=== PATIENT | female | born 1955 | race Caucasian/White ===

== ENCOUNTER 2017-12-31 09:42 | Day surgery (SDC) | payer BC ==
[~2017-12-31 09:42] MED LIST: Buffered Lidocaine 0.9% SYRIN* 5 ML/SYR SYRINGE INTRADERM ONE; DiMENhydriNATE IV* 50 MG/ML VIAL IV PUSH PRN; Famotidine IV* 10 MG/ML 2 ML (20 mg) IV ONE; Morphine INJ* 2 MG/ML 1 ML CARPUJECT IV PRN; Naloxone* 0.4 MG/ML 1 ML VIAL IV PRN; PROCHLORPERAZINE INJ 5 MG/ML 2 ML VIAL IV PRN; Scopolamine 1.5 mg* PATCH TRANSDERM PRN; fentaNYL* 50 MCG/ML 2 ML VIAL (100 MCG VIAL) IV PRN; oxyCODONE/Acetamin 5/325 MG* TAB PO PRN
[2017-12-31] MEDS ORDERED: Famotidine IV* 10 MG/ML 2 ML (20 mg) ONE (09:46)
[2017-12-31] MEDS ORDERED: ceFAZolin 2 GM PREMIX (*) 2 GM/50 ML BAG IVPB ONE (09:46)
[2017-12-31] MEDS ORDERED: fentaNYL* 50 MCG/ML 2 ML VIAL (100 MCG VIAL) ONE (09:49)
[2017-12-31] MEDS ORDERED: Midazolam* 1 MG/ML 5 ML VIAL (5 MG) ONE (09:49)
[2017-12-31] MEDS ORDERED: Chloroprocaine 3%* 20 ML VIAL ONE (11:28)
[2017-12-31] MEDS ORDERED: Ondansetron INJ* 2 MG/ML VIAL ONE (12:33)
[2017-12-31] MEDS ORDERED: Dexamethasone IV* 4 MG/ML 1 ML (4 MG) ONE (12:33)
[2017-12-31] MEDS ORDERED: Propofol* 500 MG/50 ML BTL ONE (12:33)
[2017-12-31] MEDS ORDERED: Lidocaine 2% PF * 5 ML VIAL ONE (12:33)
[2017-12-31] MEDS ORDERED: Bupivacaine 0.25% SDV* 30 ML ONE (12:33)
[2017-12-31] MEDS ORDERED: Propofol* 10 MG/ML 20 ML BTL IV PUSH ONE (12:33)
[2017-12-31] MEDS ORDERED: Bupivacaine 0.5%* 50 ML VIAL ONE (13:33)
[2017-12-31 14:51] VITALS: BP 126/85
--- NOTE | 2017-12-31 17:05 | OP ---
Operative Report - Blank - Operative Report Date of Operation: 12/31/17 Note: PATIENT: Nakia Boyce DATE OF : 1955 DATE OF SURGERY: 12/31/2017 SURGEON: Aron Blackmon MD STAINED GLASS WINDOW DESIGNER: MIKAYLA Elliott, whos assistance was necessary for positioning, retraction, help with instrumentation, and closure. ANESTHESIOLOGIST: Klever Hathaway MD PREOPERATIVE DIAGNOSIS: Left ankle distal fibula fracture, dislocation of peroneal tendons, and superior peroneal retinaculum avulsion. POSTOPERATIVE DIAGNOSIS: Left ankle distal fibula fracture, dislocation of peroneal tendons, peroneus longus and peroneus brevis tears, and superior peroneal retinaculum avulsion. OPERATION: 1. Left ankle excision of distal fibula fracture 2. Left ankle peroneus longus tendon repair 3. Left ankle peroneal tendon tenodesis, with peroneus brevis to longus tendon transfer. 4. Stabilization of left ankle dislocated peroneal tendons with fibular osteotomy groove deepening 5. Repair of left calcaneofibular ligament. ANESTHESIA: Spinal + peripheral nerve block IMPLANTS: none TOURNIQUET TIME: Less than 2 hours with a well-padded thigh tourniquet at 250 mmHg SPECIMENS: Peroneus brevis tendon ESTIMATED BLOOD LOSS: minimal COMPLICATIONS: none STATUS: Stable from the operating room to the recovery room and then home. INDICATIONS FOR PROCEDURE: Nakia sustained a left ankle injury about 2 months ago. She was found to have a distal fibular fractures with peroneal tendon dislocations. Both operative and non operative treatment alternatives were reviewed. Further, the nature and risks of surgery were reviewed in careful detail, in the office as well as the pre-operative holding area. Our discussions regarding the risks of surgery included, but were not limited to, infection, wound problems, nerve injury, neuroma, RSD, persistent symptoms, blood clot, failure of the surgery, recurrent instability, need for further surgery and even the remote chance of catastrophic complication, including loss of limb. DESCRIPTION OF PROCEDURE: The patient was seen in the preoperative holding unit and informed written consent was obtained. The appropriate extremity was marked. The patient was then brought to the operating room and carefully positioned on the operating room table. Anesthesia was induced. All bony prominences were padded with great care. A well-padded thigh tourniquet was placed. The peroneal tendons were. A chlorhexidine based pre-scrub was performed followed by a chloraprep prep and drape in standard sterile fashion. A surgical safety pause was then conducted in which we confirmed the appropriate patient, extremity, planned procedure, availability of equipment, indication and administration of prophylactic antibiotics, and DVT prophylaxis in the form of a compression boot on the non- surgical extremity. I began with an Esmarch exsanguination of the limb and the tourniquet inflated. I utilized an incision overlying the distal fibula and peroneal tendons laterally. I carried the dissection down through the soft tissue to the level of the periosteum and superior peroneal retinaculum (SPR) with care taken to protect the sural nerve, which was not visualized during the procedure. The superior peroneal retinaculum was avulsed off the distal fibula and the peroneal tendons were dislocated from behind fibula. I carefully incised the SPR to expose the peroneal tendons. Dissection of the tendons was carried distally. The peroneus brevis tendon was almost entirely torn at the level of the distal fibula. For a few centimeters in length, the tendon was in very bad condition and at one point there was only a few millimeters of remaining tendon. The peroneus longus tendon also had some frayed areas which were debrided and it also had a longitudinal tear in the area of the distal fibula. After debriding the peroneus longus tendon I repaired the longus tear by tubularizing the tendon with a 3-0 Ethibond suture. After examining the brevis tendon, the decision was made that it was not salvageable or repairable. Therefore, I performed a proximal and distal tenodesis of the peroneus brevis tendon to the peroneus longus tendon, thus transferring the brevis to longus. Then the central degenerated portion was excised. I next turned my attention to the distal fibula fracture. I exposed and cleared the fracture site. The free piece was small and of poor quality. The bone edge was fibrotic in nature and did not have healthy cancellous bone underneath it. Therefore I made the decision to excise the distal fibular fracture piece. The calcaneofibular ligament, which was attached to the piece was then repaired to the remaining distal fibula and lateral capsuloligamentous complex. At this point, I carefully inspected the peroneal groove at the posterior aspect of the fibula. This was convex groove and I therefore elected to perform a groove deepening osteotomy procedure. I utilized a small sagittal saw to create a longitudinal osteotomy in the fibula at the margin of the insertion of the SPR. I then utilized a bone tamp and a mallet to impact this area, deepening the groove. I took care to ensure that there were no sharp bony prominences in this area. At this point I carefully planned out the repair of the superior peroneal retinaculum. I then reduced the tendons and they sat nicely in the deepened retro-fibular groove. The wound was copiously irrigated. I repaired the SPR utilizing #1 Vicryl suture in a transosseous horizontal mattress suture pattern. I utilized multiple sutures for this repair, appropriately tensioning the SPR. I was able to pass a [place] under the repaired SPR without difficulty after the repair. We then irrigated the wound copiously again. The wound was closed in a layered fashion utilizing 3-0 Monocryl and 3-0 nylon. A sterile dressing was then applied and the ankle was splinted in a neutral position. All needle and sponge counts were correct at the end of the case. The patient was awakened from anesthesia and transferred to the recovery room in stable condition. There were no complications. ATTESTATION: I attest I was present and scrubbed and performed the critical portions of the procedure myself. POST-OPERATIVE PLAN: The patient will remain [id number] for an anticipated duration of 6 weeks. Follow up will be in 2 weeks for likely suture removal and transition into a short leg cast.
[2018-01-03] MEDS ORDERED: Scopolamine PATCH Remove* 1 NOTE MISC PATCH OFF ONE (05:46)
== END 2017-12-31 15:18 | disposition home or self-care (01) ==
LOC: OR 09:42
PROVIDERS: ATTEND Orthopaedic Surgery
DX: S82.62XA Displaced fracture of lateral malleolus of left fibula, initial encounter for closed fracture (principal); S93.412A Sprain of calcaneofibular ligament of left ankle, initial encounter; S96.812A Strain of other specified muscles and tendons at ankle and foot level, left foot, initial encounter; M25.371 Other instability, right ankle; I10 Essential (primary) hypertension; Z87.891 Personal history of nicotine dependence; V98.3XXA Accident to, on or involving ski lift, initial encounter; Y93.23 Activity, snow (alpine) (downhill) skiing, snowboarding, sledding, tobogganing and snow tubing; Y92.39 Other specified sports and athletic area as the place of occurrence of the external cause
CPT/HCPCS: 88304; C1776; J0690; J1100; J2250; J2400; J2405; J2704; J3010

== ENCOUNTER 2018-01-18 15:06 | Emergency (ER) | payer BC ==
--- NOTE | 2018-01-18 16:11 | ED ---
Adult Trauma - HPI Summary HPI Summary: 62F presents for fall today. She states she was using her walker when it got caught in her pants and she tripped and face planted on to her right eye. She admits to right hip and elbow pain. She has full range of motion of right elbow. She has ecchymosis noted to her right hip. She is able to bear weight on her right hip. She states she has a previous fracture of her left ankle that is going to have surgery on . She is not on any blood thinners and has discontinued her daily aspirin due to this surgery. She denies any loss consciousness. She denies any neck pain. She denies any chest pain or shortness of breath. Fall was mechanical fall. She has been taking Tylenol for her symptoms. She has history of HTN and easy bruising. - History of Current Complaint Chief Complaint: EDGeneral Stated Complaint: FALL Time Seen by Provider: 01/18/18 15:54 Pain Intensity: 4 - Allergy/Home Medications Allergies/Adverse Reactions: Allergies Allergy/AdvReac Type Severity Reaction Status Date / Time No Known Allergies Allergy Verified 01/18/18 15:12 PMH/Surg Hx/FS Hx/Imm Hx Endocrine/Hematology History: Reports: Hx Thyroid Disease - BENIGN NODULE Denies: Hx Diabetes, Hx Anemia Cardiovascular History: Reports: Hx Hypertension - ON MEDICATION GI History: Denies: Hx Jaundice Musculoskeletal History: Reports: Other Musculoskeletal History - FRACTURE LEFT ANKLE Sensory History: Reports: Hx Contacts or Glasses - GLASSES Denies: Hx Hearing Aid Opthamlomology History: Reports: Hx Contacts or Glasses - GLASSES - Surgical History Surgery Procedure, Year, and Place: tonsillectomy, vaginal tear repair Hx Anesthesia Reactions: No Infectious Disease History: No Infectious Disease History: Denies: Traveled Outside the [place] in Last 30 Days - Social History Alcohol Use: Weekly Alcohol Amount: 3-5 days per week, one drink per day Substance Use Type: Reports: None, Prescribed Smoking Status (MU): Former Smoker Type: Cigarettes Have You Smoked in the Last Year: No Review of Systems Negative: Fever Positive: Other - swelling around right eye Negative: Chest Pain Negative: Shortness Of Breath Positive: Myalgia - right hip, right elbow All Other Systems Reviewed And Are Negative: Yes Physical Exam Triage Information Reviewed: Yes Vital Signs On Initial Exam: Initial Vitals Temp Pulse Resp BP Pulse Ox 98.0 F 86 17 123/82 99 01/18/18 15:09 01/18/18 15:09 01/18/18 15:09 01/18/18 15:09 01/18/18 15:09 Vital Signs Reviewed: Yes Appearance: Positive: Well-Appearing Skin: Positive: Other - ecchymosis around right eye and hip, abrasion to right elbow Head/Face: Positive: Other - no step off, powell sign Eyes: Positive: Normal, EOMI, SELINA, Conjunctiva Clear ENT: Positive: Normal ENT inspection, Pharynx normal, TMs normal, Other - swelling to lower lip, 1/2cm laceration to upper lip in wet vermilllion Neck: Positive: Other: - nontender neck Respiratory/Lung Sounds: Positive: Clear to Auscultation, Breath Sounds Present Cardiovascular: Positive: Normal, RRR Abdomen Description: Positive: Nontender, Soft Bowel Sounds: Positive: Present Musculoskeletal: Positive: Strength/ROM Intact - right elbow, Edema Right - hip with ecchymosis, good pulses, sensation grossly intact. Neurological: Positive: Sensory/Motor Intact, Alert, Oriented to Person Place, Time, CN Intact II-III Psychiatric: Positive: Normal - Bartlett Coma Scale Best Eye Response: 4 - Spontaneous Best Motor Response: 6 - Obeys Commands Best Verbal Response: 5 - Oriented Coma Scale Total: 15 Diagnostics - Vital Signs Vital Signs Temp Pulse Resp BP Pulse Ox 01/18/18 15:09 98.0 F 86 17 123/82 99 - Laboratory Lab Statement: Any lab studies that have been ordered have been reviewed, and results considered in the medical decision making process. - Radiology hip Xray Interpretation: No Acute Changes Radiology Interpretation Completed By: Radiologist elbow Xray Interpretation: Positive (See Comments) - IMPRESSION: No definite fracture of the right elbow is noted. There is anterior fat pad sign. Follow-up imaging if clinically indicated is suggested. Radiology Interpretation Completed By: Radiologist - CT brain CT Interpretation: Positive (See Comments) - IMPRESSION: Linear high density in the right frontal sulci for which a small subarachnoid hemorrhage cannot BE excluded. Follow-up exam is suggested. CT Interpretation Completed By: Radiologist maxillaryfacial CT Interpretation: No Acute Changes CT Interpretation Completed By: Radiologist Adult Trauma Course/Dx - Course Course Of Treatment: 62F presents for fall today. She states she was using her walker when it got caught in her pants and she tripped and face planted on to her right eye. She admits to right hip and elbow pain. She has full range of motion of right elbow. She has ecchymosis noted to her right hip. She is able to bear weight on her right hip. She states she has a previous fracture of her left ankle that is going to have surgery on . She is not on any blood thinners and has discontinued her daily aspirin due to this surgery. She denies any loss consciousness. She denies any neck pain. She denies any chest pain or shortness of breath. Fall was mechanical fall. She has been taking Tylenol for her symptoms. On exam has ecchymosis noted around the right eye. Extraocular movements intact. Normal neuro exam. Has tenderness over her right elbow and right hip. Ecchymosis noted to right hip. xray hip normal. elbow no definite fracture but is anterior fat pad. has full ROM of elbow with minimal pain so do not believe fat pad is pathologic. CT brain shows possible small subarachnoid hemorrhage. CT maxillaryfacial normal. Spoke with Dr. Nix he reviewed the CT of head and said the area is not significant and will never change into anything significant. Recommended not getting a repeat CT. Told to do standard concussion precautions and have follow-up with primary. Patient understands and agrees with plan. - Diagnoses Differential Diagnosis/HQI/PQRI: Positive: Abrasion(s), Contusion(s), Fracture Provider Diagnoses: Fall, Injury of right elbow, Right hip pain, Facial injury, Head injury - Physician Notifications Discussed Care Of Patient With: Emmanuel Nix Time Discussed With Above Provider: 18:10 - does not need further imaging, treat as normal head injury, does not believe is significant bleed if anything Discharge - Sign-Out/Discharge Documenting (check all that apply): Discharge/Admit/Transfer - Discharge Plan Condition: Good Disposition: HOME Patient Education Materials: Head Injury (ED), Hip Contusion (ED) Referrals: Neeta Ochoa MD [Primary Care Provider] - Additional Instructions: Place ice on area as needed, elevate Take Tylenol for headache every 6 hours Modify activities as tolerated Follow up with primary within 5 days Return to ED if develop any new or worsening symptoms - Billing Disposition and Condition Condition: GOOD Disposition: HOME
--- NOTE | 2018-01-18 16:55 | RAD ---
Indication: Right elbow pain. 4 views of the right elbow demonstrates no fracture. There is an anterior fat pad sign. No obvious fracture is identified. If clinical symptoms persist follow-up imaging is suggested. IMPRESSION: No definite fracture of the right elbow is noted. There is anterior fat pad sign. Follow-up imaging if clinically indicated is suggested.
--- NOTE | 2018-01-18 16:56 | RAD ---
Indication: Right hip pain. 2 views of the right hip and an AP view the pelvis demonstrates no fracture. Joint spaces well-preserved. Pelvic ring is intact. IMPRESSION: Unremarkable right hip and pelvis.
[2018-01-18] MEDS ORDERED: Acetaminophen TAB* 325 MG PO ONE (17:31)
--- NOTE | 2018-01-18 17:54 | RAD ---
Indication: Head injury after fall. CT of the brain was performed without IV contrast. Ventricular structures are midline. No midline shift is noted. The extra-axial spaces are unremarkable. Small linear area of hyperdensity is noted in the right frontal sulci. E exclude a small subarachnoid hemorrhage. Follow-up exam is suggested. Mastoid air cells and paranasal sinuses are unremarkable. IMPRESSION: Linear high density in the right frontal sulci for which a small subarachnoid hemorrhage cannot BE excluded. Follow-up exam is suggested.
--- NOTE | 2018-01-18 17:58 | RAD ---
Indication: Fall, bruising to the right eye. CT of the facial bones was obtained in the axial plane. Sagittal and coronal reconstructed images were obtained. The frontal sinuses are clear. The skull base demonstrates no fracture. The orbits are intact without evidence of fracture. Zygomatic arch is intact. Nasal arch and nasal spine are otherwise unremarkable. Mucous retention cyst is noted in the left maxillary sinus. The hard palate and pterygoid plates are intact. The mandible demonstrates no fracture. The visualized cervical spine shows no fracture. IMPRESSION: No fracture of the facial bones is identified. Mucus retention cyst left maxillary sinus.
[2018-01-18 18:45] VITALS: BP 121/84
== END 2018-01-18 18:44 | disposition home or self-care (01) ==
LOC: ED 15:06
DX: S59.909A Unspecified injury of unspecified elbow, initial encounter (principal); S09.93XA Unspecified injury of face, initial encounter; S09.90XA Unspecified injury of head, initial encounter; M25.551 Pain in right hip; Y92.9 Unspecified place or not applicable; W01.0XXA Fall on same level from slipping, tripping and stumbling without subsequent striking against object, initial encounter; Z86.79 Personal history of other diseases of the circulatory system; Z87.891 Personal history of nicotine dependence
CPT/HCPCS: 70450; 70486; 99283; A9270-GY

== ENCOUNTER 2018-01-21 11:21 | Day surgery (SDC) | payer BC ==
[~2018-01-21 11:21] MED LIST changes: -Famotidine IV* 10 MG/ML 2 ML (20 mg) IV ONE; +Famotidine TAB* 20 MG PO ONE; +Gabapentin CAP(*) 300 MG PO ONE; +Midazolam* 1 MG/ML 5 ML VIAL (5 MG) ONE; +fentaNYL* 50 MCG/ML 2 ML VIAL (100 MCG VIAL) ONE
[2018-01-21] MEDS ORDERED: Famotidine TAB* 20 MG ONE (11:25)
[2018-01-21] MEDS ORDERED: ceFAZolin 2 GM PREMIX (*) 2 GM/50 ML BAG IVPB ONE (11:25)
[2018-01-21] MEDS ORDERED: Gabapentin CAP(*) 300 MG ONE (11:25)
[2018-01-21] MEDS ORDERED: Bupivacaine 0.25% SDV* 30 ML ONE (11:30)
[2018-01-21] MEDS ORDERED: Propofol* 10 MG/ML 20 ML BTL IV PUSH ONE ×2 (13:50→14:50)
[2018-01-21] MEDS ORDERED: Dexamethasone IV* 4 MG/ML 1 ML (4 MG) ONE (13:50)
[2018-01-21] MEDS ORDERED: Lidocaine 2% PF * 5 ML VIAL ONE (13:50)
[2018-01-21] MEDS ORDERED: Ketorolac INJ* 30 MG/ML 1 ML VIAL ONE (13:50)
[2018-01-21] MEDS ORDERED: Ondansetron INJ* 2 MG/ML VIAL ONE (13:50)
[2018-01-21] MEDS ORDERED: Chloroprocaine 2%* 20 ML VIAL ONE (13:50)
[2018-01-21 16:30] VITALS: BP 127/85
--- NOTE | 2018-01-21 17:31 | OP ---
Operative Report - Blank - Operative Report Date of Operation: 01/21/18 Note: PATIENT: Nakia Boyce DATE OF : 1955 DATE OF SURGERY: 01/21/2018 SURGEON: Aron Blackmon MD CO-SURGEON: Jason Quiles MD FABRICIO RESPITE COORDINATOR: MIKAYLA Elliott ANESTHESIOLOGIST: Dr. Hathaway PREOPERATIVE DIAGNOSIS: Left distal fibular fracture with recurrent peroneal instability POSTOPERATIVE DIAGNOSIS: Left distal fibular fracture with recurrent peroneal instability OPERATION: Left peroneal tendon stabilization procedure with fibular groove deepening osteotomy. Excision of left distal fibular fracture. ANESTHESIA: Spinal IMPLANTS: Arthrex mini-fragment plate and screws TOURNIQUET TIME: Less than 90 minutes with a well-padded thigh tourniquet SPECIMENS: none ESTIMATED BLOOD LOSS: minimal COMPLICATIONS: none STATUS: Stable from the operating room to the recovery room and then home. INDICATIONS FOR PROCEDURE: Nakia had surgery 3 weeks ago by me for an injury that resulted in distal fibular fractures, peroneal tendon tears, and peroneal tendon dislocation. At her postoperative visit, she was noted to have a new distal fibular fracture, and the tendons were found to have redislocated. I had her see Dr. Quiles for a second opinion. She asked if we would be willing to do her surgery together. Both operative and non operative treatment alternatives were reviewed. After this discussion with both Dr. Quiles and I separately, she decided that she would like to move forward with surgery. Further, the nature and risks of surgery were reviewed in careful detail, in the office as well as the pre- operative holding area. Our discussions regarding the risks of surgery included , but were not limited to, infection, wound problems, nerve injury, neuroma, RSD , persistent symptoms, blood clot, failure of the surgery, recurrent instability , new fracture and even the remote chance of catastrophic complication, including loss of limb. DESCRIPTION OF PROCEDURE: The patient was seen in the preoperative holding unit and informed written consent was obtained. The appropriate extremity was marked. The patient was then brought to the operating room and carefully positioned on the operating room table. Anesthesia was induced. All bony prominences were padded with great care. A well-padded thigh tourniquet was placed. A chlorhexidine based pre- scrub was performed followed by a chloraprep prep and drape in standard sterile fashion. A surgical safety pause was then conducted in which we confirmed the appropriate patient, extremity, planned procedure, availability of equipment, indication and administration of prophylactic antibiotics, and DVT prophylaxis in the form of a compression boot on the non-surgical extremity. I began with an Esmarch exsanguination of the limb was then performed and the tourniquet inflated. I utilized her prior incision overlying the peroneal tendons laterally. I carried the dissection down through the soft tissue to the level of the periosteum and superior peroneal retinaculum (SPR) with care taken to protect the sural nerve, which was not visualized during the procedure. I carefully incised the SPR to expose the fracture fragment and the peroneal tendons. The fracture fragment was very small, and the decision was made to excise it. The tendons were exposed, and the prior repair and tenodesis looked good. At this point, I carefully inspected the peroneal groove at the posterior aspect of the fibula. Likely due to the new fracture, she had a very shallow retro-fibular groove. I therefore elected to perform another groove deepening osteotomy procedure. I utilized a small sagittal saw to create a longitudinal osteotomy in the fibula at the margin of the insertion of the SPR. I then utilized a bone tamp and a mallet to impact this area, deepening the groove. I took care to ensure that there were no sharp bony prominences in this area. At this point I carefully planned out the repair of the superior peroneal retinaculum. I then reduced the tendons and they sat nicely in the deepened retro-fibular groove. The wound was copiously irrigated. I repaired the SPR utilizing #1 Vicryl suture in a transosseous horizontal mattress suture pattern. I utilized multiple sutures for this repair, appropriately tensioning the SPR. I was able to pass a [place] under the repaired SPR without difficulty after the repair. Because her bone is quite soft, and she has had multiple fractures of the distal fibula, we decided to place a buttress plate over the lateral aspect of the distal fibula to reinforce the repair. A mini fragment Arthrex T-plate was contoured and then placed over the distal fibula, and 3 screws were placed proximally. This provided a nice buttress effect against the distal fibula. We then irrigated the wound copiously again. The wound was closed in a layered fashion utilizing 3-0 Monocryl and 3-0 nylon. A sterile dressing was then applied and the ankle was splinted in a neutral position. All needle and sponge counts were correct at the end of the case. The patient was awakened from anesthesia and transferred to the recovery room in stable condition. There were no complications. ATTESTATION: I attest I was present and scrubbed and performed the critical portions of the procedure myself. POST-OPERATIVE PLAN: The patient will remain [id number] for an anticipated duration of 6 weeks. Follow up will be in 2 weeks for likely suture removal and transition into a short leg cast. We will obtain new nonweightbearing x-rays at her postoperative visit.
[2018-01-24] MEDS ORDERED: Scopolamine PATCH Remove* 1 NOTE MISC PATCH OFF ONE (06:03)
== END 2018-01-21 16:38 | disposition home or self-care (01) ==
LOC: OR 11:21
PROVIDERS: ATTEND Orthopaedic Surgery
DX: S82.62XG Displaced fracture of lateral malleolus of left fibula, subsequent encounter for closed fracture with delayed healing (principal); X58.XXXD Exposure to other specified factors, subsequent encounter; M25.372 Other instability, left ankle; I10 Essential (primary) hypertension; Z87.891 Personal history of nicotine dependence
CPT/HCPCS: A9270-GY; C1713; J0690; J1100; J1885; J2250; J2400; J2405; J2704; J3010